=== PATIENT | female | born 1980 | race Caucasian/White ===

== ENCOUNTER 2018-03-17 14:14 | Emergency (ER) | payer OTHER | END 2018-03-17 17:08 | disposition home or self-care (01) | LOC: FTE 14:14 | DX: M79.602 Pain in left arm (principal) | CPT/HCPCS: 29125; 73090; 73110-LT; 73130-LT; 99283-25 ==

== ENCOUNTER 2018-09-22 19:36 | Emergency (ER) | payer OTHER ==
[2018-09-22 22:50] LABS: URINE PH (Dip) POC 8.5 (5.0-8.5)
[2018-09-22 22:50] LABS: URINE BLOOD (Dip) POC Trace-lysed (NEGATIVE); URINE GLUCOSE (Dip) POC Negative (NEGATIVE); URINE KETONES (Dip) POC Negative (NEGATIVE); URINE LEUKOCYTE EST (Dip) POC Negative (NEGATIVE); URINE NITRITE (Dip) POC Negative (NEGATIVE); URINE TOTAL PROTEIN POC 1+ (NEGATIVE)
[2018-09-22 23:13] LABS: ADD MAN DIFF? NO
[2018-09-22 23:17] LABS: WHITE BLOOD COUNT 11.3 10^3/ul (4.8-10.8)
[2018-09-22 23:17] LABS: BASOPHILS % 0.1 % (0.0-2.0); EOSINOPHILS # 0.1 10^3/ul (0.0-0.5); EOSINOPHILS % 0.4 % (0.0-7.0); HEMATOCRIT 43.4 % (37.0-47.0); HEMOGLOBIN 14.8 g/dl (12.0-16.0); LYMPHOCYTES % 8.7 % (15.0-51.0); MEAN CORPUSCULAR HEMOGLOBIN 29.1 pg (29.0-33.0); MEAN CORPUSCULAR HGB CONC 34.1 g/dl (32.0-37.0); MEAN CORPUSCULAR VOLUME 85.3 fl (82.0-101.0); MEAN PLATELET VOLUME 9.9 fl (7.4-10.4); MONOCYTE # 0.8 10^3/ul (0.3-0.9); MONOCYTES % 6.7 % (0.0-11.0); NEUTROPHIL # 9.4 10^3/ul (1.6-7.5); NEUTROPHILS % 83.8 % (39.0-77.0); PLATELET COUNT 246 10^3/UL (140-415); RED BLOOD COUNT 5.09 10^6/ul (4.20-5.40); RED CELL DISTRIBUTION WIDTH 12.9 % (11.5-14.5)
[2018-09-22 23:37] LABS: ALANINE AMINOTRANSFERASE 19 IU/L (13-69); ALBUMIN 4.1 g/dl (3.3-4.9); ALBUMIN/GLOBULIN RATIO 1.13; ALKALINE PHOSPHATASE 72 IU/L (42-121); ANION GAP 8 (5-13); ASPARTATE AMINO TRANSFERASE 34 IU/L (15-46); BILIRUBIN,INDIRECT 0.8 mg/dl (0-1.1); BILIRUBIN,TOTAL 0.8 mg/dl (0.2-1.3); BLOOD UREA NITROGEN 11 mg/dl (7-20); CALCIUM 8.9 mg/dl (8.4-10.2); CARBON DIOXIDE 28 mmol/L (21-31); CHLORIDE 102 mmol/L (97-110); CREATININE 0.62 mg/dl (0.44-1.00); Estimated GFR > 60 mL/min (>60); GLUCOSE 97 mg/dl (70-220); LIPASE 62 U/L (23-300); POTASSIUM 3.6 mmol/L (3.5-5.1); SODIUM 138 mmol/L (135-144); TOTAL PROTEIN 7.7 g/dl (6.1-8.1)
[2018-09-23] MEDS: ONDANSETRON (ODT) 4 MG TAB ODT (01:28)
[2018-09-23] MEDS: ACETAMINOPHEN 325 MG TAB PO (01:28)
[2018-09-23] MEDS: LOPERAMIDE 2 MG CAP PO (01:28)
== END 2018-09-23 01:45 | disposition home or self-care (01) ==
LOC: E/R 09-23 01:45
DX: R10.84 Generalized abdominal pain (principal); R19.7 Diarrhea, unspecified; R11.2 Nausea with vomiting, unspecified; I10 Essential (primary) hypertension
CPT/HCPCS: 36415; 74176; 80053; 81003; 81025; 83690; 85025; 99284-25

== ENCOUNTER 2018-12-08 21:37 | Emergency (ER) | payer OTHER ==
[2018-12-09] MEDS: NICARDipine HCL 30 MG CAPSULE PO (01:49)
== END 2018-12-09 05:00 | disposition home or self-care (01) ==
LOC: FTE 21:37
DX: R03.0 Elevated blood-pressure reading, without diagnosis of hypertension (principal); R40.2142 Coma scale, eyes open, spontaneous, at arrival to emergency department; R40.2362 Coma scale, best motor response, obeys commands, at arrival to emergency department; R40.2252 Coma scale, best verbal response, oriented, at arrival to emergency department; M79.7 Fibromyalgia; T43.215A Adverse effect of selective serotonin and norepinephrine reuptake inhibitors, initial encounter
CPT/HCPCS: 70450; 99284-25